=== PATIENT | male | born 1960 | race Caucasian/White ===

== ENCOUNTER → 2019-08-20 | Outpatient (CLI) | payer OTHER ==
--- NOTE | 2019-08-21 10:15 | RADIOLOGY REPORT (SQ) ---
EXAM DESCRIPTION: MRI LT UPPER JOINT WITHOUT COMPLETED DATE/TIME: 08/20/2019 11:59 am REASON FOR STUDY: PAIN COMPARISON: None. TECHNIQUE: Left shoulder images acquired and stored on PACS. Multiplanar imaging to include fat sens itive sequences such as T1, water sensitive sequences such as FST2/STIR, cartilage sensitive sequence s such as FSPD/gradient-echo sequences. LIMITATIONS: None. FINDINGS: BONE MARROW AND CORTEX: No worrisome bone lesions or marrow replacement. No occult fractur es. JOINT OR BURSAL EFFUSION: No significant joint or bursal fluid. No suggestion of loose bodies. GLENO-HUMERAL ARTICULATION: Normal articulation. No subluxation. No cystic change. No osteophytes or cartilage loss. ACROMION AND AC JOINT: Minimal AC DJD without bulky overgrowth. Mild lateral down slope of the acr omion with slight spurring and minimal subacromial narrowing. ROTATOR CUFF AND INTERVAL: Partial thickness undersurface tear along the supraspinatus distally. No full-thickness breech. No cuff muscle atrophy. infraspinatus and subscapularis tendons intact. LABRUM AND BICEPS LABRAL COMPLEX: Suspect some mild fraying in the superior labrum to include the a nchor. Biceps tendon looks intact. REMAINDER OF LABRUM AND IGHL : Generally intact. PERIARTICULAR AND ADJACENT SOFT TISSUES: No masses or abnormal nodes. OTHER: No other significant finding. IMPRESSION: 1. Articular surface partial supraspinatus tear. No full-thickness tear or atrophy. 2. Suspect low grade fraying in the superior labrum. Biceps tendon intact. 3. Other findings as above. TECHNICAL DOCUMENTATION: JOB ID: [id number] [employer]- All Rights Reserved Reading location - IP/workstation name: [email or web address]
== END ==
LOC: RAD 11:10
PROVIDERS: ATTEND Nurse Practitioner Family
DX: M25.512 Pain in left shoulder (principal)